=== PATIENT | male | born 2005 | race Caucasian/White ===

== ENCOUNTER → 2024-09-17 12:46 | Outpatient (REF) | payer BC, SELFPAY | LOC: RCS 12:46 | PROVIDERS: ATTENDING PHYSICIAN Internal Medicine; FAMILY PHYSICIAN Psychologist Clinical | DX: E66.1 Drug-induced obesity (principal); R03.0 Elevated blood-pressure reading, without diagnosis of hypertension | CPT/HCPCS: 93306 ==